=== PATIENT | female | born 1995 | race Asian ===

== ENCOUNTER 2017-04-17 15:03 | Emergency (ER) | payer BC ==
[~2017-04-17] VITALS: Ht 167.6 cm; Wt 68.7 kg
[2017-04-17] MEDS ORDERED: ACETAMINOPHEN 500 MG TABLET ONE (15:19)
[2017-04-17] MEDS ORDERED: ONDANSETRON 2MG/ML, 2ML ONE (15:25)
[2017-04-17] MEDS ORDERED: SODIUM CHLORIDE FLUSH 10ML SYR IVF ONE (15:30)
[2017-04-17] MEDS ORDERED: SODIUM CHLORIDE 0.9% 1,000ML IVBOLUS ONE (15:30)
[2017-04-17] MEDS ORDERED: ACETAMINOPHEN 500 MG TABLET PO ONE (15:30)
[2017-04-17] MEDS ORDERED: ONDANSETRON 2MG/ML, 2ML IVPush ONE (15:30)
[2017-04-17 15:53] LABS: BLOOD UREA NITROGEN 12 mg/dL (7-18)
[2017-04-17 16:03] LABS: PATH.CAST-FLAG NOT PRESENT; SPERM-FLAG NOT PRESENT; SRC-FLAG NOT PRESENT; XTAL-FLAG NOT PRESENT; YLC-FLAG NOT PRESENT
[2017-04-17 16:30] LABS: RAPID INFLUENZA A Negative (Negative); RAPID INFLUENZA B Negative (Negative)
[2017-04-17 16:39] VITALS: BP 130/77
[2017-04-17] MEDS ORDERED: CEFTRIAXONE 1,000 MG IM ONE (17:00)
[2017-04-17] MEDS ORDERED: CEFTRIAXONE 1,000 MG ONE (17:05)
== END 2017-04-17 17:43 | disposition home or self-care (01) ==
LOC: ED 16:08
DX: N30.90 Cystitis, unspecified without hematuria (principal); N39.0 Urinary tract infection, site not specified; R51 Headache
CPT/HCPCS: 36415; 71020; 80048; 81001; 82040; 84703; 85025; 87077; 87086; 87186; 87400; 96361; 96372; 96374; 99285; J0696; J2405; J7030